=== PATIENT | female | born 1940 | race Caucasian/White ===

== ENCOUNTER 2019-09-25 18:45 | Inpatient (IN) | payer MEDICARE, OTHER, SELFPAY ==
[2019-09-25 18:23] VITALS: BP 137/76; PULSE 120; RESP 20; TEMP 37.1; O2SAT 91
--- NOTE | 2019-09-25 18:23 | XRR_ITS ---
PROCEDURE INFORMATION: Exam: XR Chest, 1 View Exam date and time: 09/25/2019 7:29 PM Age: 78 years old Clinical indication: Shortness of breath; Patient HX: Pneumonia TECHNIQUE: Imaging protocol: XR of the chest Views: 1 view. COMPARISON: No relevant prior studies available. FINDINGS: Lungs: Severe emphysema with scattered interstitial scarring. Mixed airspace and interstitial opacities in both lung bases, right greater than left. Pleural space: Unremarkable. No pleural effusion. No pneumothorax. Heart/Mediastinum: The heart size is normal. Mitral annulus calcifications. Bones/joints: Unremarkable. XR/XR chest 1V portable [id number] IMPRESSION: Bibasilar pneumonia versus aspiration.
--- NOTE | 2019-09-25 19:30 | PC.NURSE ---
Received patient from [facility] in [place], [place]. via [facility] with diagnosis of new onset of A-Fib with RVR and pneumonia. Assessment completed. Patient takes care of spouse who has lung cancer with mets. Dr. Sanderson in to see patient. Medication list received from patient. Oriented to room. Denies pain at this time. Just hungry and thirsty. [place] and water given to patient. Will monitor. Cardizem drip on at 15ml/hr via pump.
[2019-09-25 19:41] VITALS: BMI 25.2
--- NOTE | 2019-09-25 20:26 | PM.HP ---
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 She states that she was treated with a short course of azithromycin which she completed approximately a week ago and felt somewhat better but continues to have a productive cough with yellow-green sputum, low-grade temperature, fatigue and chills. She states that she has been keeping an eye on her blood pressure and heart rate and up until earlier this morning both of these were within normal limits. At some point this afternoon she rechecked her vital signs noticed that her heart rate was a very fast so decided to take some aspirin and then go to the ER for further evaluation. 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 She had extensive work-up done at the outside facility including a normal CBC, normal chemistry other than a BUN of 13 and a creatinine of 1.27, calcium of 8.0, BNP of 471, initial troponin of 21, normal TSH. Urinalysis is positive for trace protein and some blood. UDS was positive for benzodiazepines. She had a chest x-ray showing emphysema and bibasilar atelectasis versus consolidation concerning for developing infiltrate. EKG showed A. fib with RVR. She will received a Cardizem bolus and was started on a drip and received a dose of ceftriaxone. She is still on a Cardizem drip which we have increased to 15 mg/hr due to consistent A. fib with RVR. Heart rate has been as high as the 170s. Review of Systems Const: Reports: fever (low grade), chills, change in appetite (decreased appetite), fatigue and malaise Eyes: Denies: change in vision ENMT: Denies: painful swallowing Card: Reports: irregular heart rhythm and shortness of breath on exertion; Denies: chest pain, palpitations, edema, swelling of feet/ankles or lightheadedness Resp: Reports: productive cough (yellow-green sputum); Denies: shortness of breath GI: Reports: nausea; Denies: abdominal pain, vomiting, vomiting blood or blood in stool : Denies: difficulty urinating, painful urination, urinary frequency or blood in urine Musc: Denies: back pain Skin/Breast: Denies: rash Neuro: Denies: numbness in extremities or weakness in extremities Psych: Denies: anxiety Medications/Allergies Home Medications Medication Instructions Recorded Confirmed Last Taken Type amlodipine 10 mg PO DAILY 09/25/19 09/25/19 Unknown History calcitriol 0.5 mcg PO BID 09/25/19 09/25/19 Unknown History calcium carb and citrate-vitD3 500 mg PO BID 09/25/19 09/25/19 Unknown History ciprofloxacin HCl 500 mg PO BID 09/25/19 09/25/19 Unknown History diazepam See Rx Instructions .ROUTE .COMPLEX 09/25/19 09/25/19 Unknown History enalapril maleate 10 mg PO DAILY 09/25/19 09/25/19 Unknown History levothyroxine [Synthroid] 175 mcg PO DAILY 09/25/19 09/25/19 09/24/19 20:30 History 175 mcg Allergies Allergy/AdvReac Type Severity Reaction Status Date / Time Sulfa (Sulfonamide Allergy ADR-Nausea Verified 09/25/19 19:31 Antibiotics) PFSH Acute PFSH: Statuses (acute, chronic, etc) shown below reflect problem list status as previously entered and may not be historically accurate Medical History (Updated 09/26/19 @ 02:14 by Sera Sanderson MD) Anxiety (Acute) Breast cancer (Acute) Status post 5 years of adjuvant hormonal therapy with Arimidex Chronic kidney disease, stage III (moderate) (Acute) COPD (chronic obstructive pulmonary disease) (Acute) Hypertension (Acute) Hypoparathyroidism (Acute) Hypothyroidism (Acute) Osteoporosis (Acute) Tobacco dependency (Acute) Surgical History (Updated 09/26/19 @ 02:06 by Sera Sanderson MD) History of bilateral salpingo-oophorectomy (Acute) History of ear surgery (Acute) removal of cyst from L ear in 1998 History of hysterectomy (Acute) History of laparotomy (Acute) for bowel obstruction History of thyroidectomy (Acute) in 1989 S/P mastectomy (Acute) left, with sentinal lymph node biopsy Family History (Updated 09/26/19 @ 02:09 by Sera Sanderson MD) Father Cancer prostate cancer, lung cancer Grandmother Cancer breast cancer Mother CAD (coronary artery disease) Social History (Updated 09/26/19 @ 02:06 by Sera Sanderson MD) Smoking and tobacco status: current every day smoker cigarettes Packs smoked per day: 1 Alcohol intake: never Substance/Drug Use: never Lives independently: Yes Household members: spouse Housing: House Vitals/I&O/Wt Last Vital Signs Temp 98.7 F 09/25/19 18:23 Pulse 120 H 09/25/19 18:23 Resp 20 H 09/25/19 18:23 BP 137/76 09/25/19 18:23 Pulse Ox 91 09/25/19 18:23 Physical Exam Const: COMMON NORMALS: no apparent distress and oriented x3 GENERAL APPEARANCE: cooperative and comfortable NUTRITIONAL APPEARANCE: thin ORIENTATION/CONSCIOUSNESS: Yes awake HENMT: COMMON NORMALS: normocephalic, head/scalp atraumatic, hearing grossly normal bilaterally and moist oral mucous membranes HEAD & SCALP: normocephalic and atraumatic Eye: COMMON NORMALS: PERRL, EOMs intact bilaterally and conjunctivae normal CONJUNCTIVA: Yes conjunctivae normal PUPIL: Yes PERRL Neck/C-Spine: COMMON NORMALS: full ROM GENERAL: Yes normal visual inspection and Yes trachea midline Resp: COMMON NORMALS: normal respiratory effort, no retractions and no use of accessory muscles EFFORT & INSPECTION: Yes able to speak in complete sentences, Yes symmetric chest movement and No tachypneic AUSCULTATION: diminished lung sounds bilateral Cardio: COMMON NORMALS: S1 normal heart sound, S2 normal heart sound and no murmurs RATE: regular rate and tachycardic RHYTHM: abnormal rhythm irregularly irregular HEART SOUNDS: S1 normal and S2 normal GI: COMMON NORMALS: normal to inspection, nondistended, normoactive bowel sounds, soft to palpation and non-tender PALPATION: Yes soft Extremity: COMMON NORMALS: normal to inspection, full ROM and no clubbing, cyanosis or edema; negative for no pedal edema Neuro: COMMON NORMALS: oriented x3, moves all extremities, no focal motor deficits and no sensory deficits noted Psych: COMMON NORMALS: mental status grossly normal, thought process normal, cooperative, affect normal and speech normal SPEECH: Yes normal speech THOUGHT PROCESS: normal thought process Skin: COMMON NORMALS: no rashes or lesions noted, no jaundice, no petechiae and no mottling GENERAL SKIN EXAM: no rashes or lesions noted Data Other Labs: Reviewed labs done at [facility] CBC: 8.3/14.1/42.3/234 BMP: 136/4.0/96/26/13/1.27/117/8.0 Troponin-21 BNP-471 TSH-1.81 UA: trace protein/+blood UDS: + benzos CXR: Radiologist's impression: no pleural effusion, noted emphysema, bibasilar atelectasis versus consolidation concerning for developing infiltrates A&P Assessment and plan (1) Atrial fibrillation with RVR: -Appears to be new onset A. fib with RVR -Currently requiring Cardizem drip; wean off as tolerated -Telemetry monitoring -Echo in a.m. -Monitor vital signs -May require therapeutic anticoagulation but for now we will do prophylactic Lovenox -Potassium, TSH within normal limits Status: Acute Code(s): I48.91 - Unspecified atrial fibrillation (2) Pneumonia: -Noted evidence of bibasilar pneumonia on chest x-ray -No leukocytosis, afebrile -Received a dose of ceftriaxone at outside facility, continue this plus azithromycin -Currently requiring supplemental oxygen; she is not oxygen dependent at baseline -Continue to monitor respiratory status Status: Acute Qualifiers: Pneumonia type: due to unspecified organism Laterality: bilateral Lung location: lower lobe of lung Qualified Code(s): J18.9 - Pneumonia, unspecified organism Code(s): J18.9 - Pneumonia, unspecified organism (3) COPD (chronic obstructive pulmonary disease): -COPD with acute exacerbation and superimposed pneumonia -Treatment of pneumonia as noted above -Add oral steroids; Neb treatments as needed -supplemental oxygen as needed Status: Acute Qualifiers: COPD type: COPD with acute exacerbation Qualified Code(s): J44.1 - Chronic obstructive pulmonary disease with (acute) exacerbation Code(s): J44.9 - Chronic obstructive pulmonary disease, unspecified (4) Hypertension: -Monitor vital signs -Resume oral antihypertensives as appropriate Status: Acute Qualifiers: Hypertension type: essential hypertension Qualified Code(s): I10 - Essential (primary) hypertension Code(s): I10 - Essential (primary) hypertension (5) Chronic kidney disease, stage III (moderate): -has hx of CKD stage 3; baseline Cr unknown -continue to monitor renal function -avoid nephrotoxins, renally dose meds Status: Acute Code(s): N18.3 - Chronic kidney disease, stage 3 (moderate) Additional A&P Information -Anxiety -Chronic smoker: 1 PPD; order nicotine patch -hx of infiltrating ductal carcinoma of the left breast s/p left mastectomy, adjuvant hormonal therapy (Arimidex) -Hypoparathyroidism (acquired) -Hypothyroidism: resume levothyroxine -cardiac diet as tolerated -DVT ppx with Lovenox -Dispo: home -Code status: FULL code Attestations Medical Necessity Statement*: Gladis Ceballos's hospital stay will require greater than 2 midnights for management of new onset A. fib with RVR currently requiring Cardizem drip and close telemetry monitoring as well as treatment of pneumonia and acute COPD exacerbation. Time Spent in Patient Care: Greater than 35 minutes (>than 50% of time spent in counselling and/or direct pt care on unit). Coding Level of Care Code Acute Rn Registry for [facility] Fwd Diagnoses Atrial fibrillation with RVR I48.91 Pneumonia J18.9 Pneumonia type: due to unspecified organism Laterality: bilateral Lung location: lower lobe of lung COPD (chronic obstructive pulmonary disease) J44.1 COPD type: COPD with acute exacerbation Hypertension I10 Hypertension type: essential hypertension Chronic kidney disease, stage III (moderate) N18.3
--- NOTE | 2019-09-25 20:27 | ECG_ITS ---
Measurements Intervals [place] Rate: 92 P: ID: 0 QRS: 1 QRSD: 134 T: 74 QT: 425 QTc: 526 ATRIAL FIBRILLATION LEFT BUNDLE BRANCH BLOCK [120+ ms QRS DURATION, 80+ ms Q/S IN V1/V2, 85+ ms R IN I/aVL/V5/V6] No previous ECG available for comparison Electronically Signed On 09-26-2019 9:34:14 TENANT SELECTOR by Tony Erickson M.D. [id number]
[2019-09-25] MEDS: diazePAM 5 mg Tablet PO (21:14)
[2019-09-25] MEDS: levothyroxine 150 mcg Tablet PO (21:14)
[2019-09-25] MEDS: levothyroxine 25 mcg Tablet PO (21:14)
[2019-09-25] MEDS: azithromycin 500 MG in sodium chloride 0.9% 250 ML 250 MG IV (21:15)
[2019-09-25] MEDS: enoxaparin 40 mg/0.4 mL Syringe SUBCUT (21:16)
[2019-09-25 21:37] LABS: Troponin(5th) Baseline 25 ng/mL (0-10)
[2019-09-25 22:01] LABS: Magnesium 2.3 mg/dL (1.7-2.3)
[2019-09-25] MEDS: sodium chloride 0.9% 100 ML 10 ML (22:25)
[2019-09-25 23:21] LABS: Troponin 5 2HR 30.19 ng/mL (0-10); Troponin 5 2HR Delta 5.19 ABS# (0-10)
[2019-09-26] VITALS (8 sets, daily range): BP systolic 90–121; BP diastolic 52–71; PULSE 59–105; RESP 17–32; TEMP 36.6–36.8; O2SAT 90–96
--- NOTE | 2019-09-26 00:27 | ECG_ITS ---
Measurements Intervals [place] Rate: 75 P: CO: 0 QRS: -35 QRSD: 142 T: 72 QT: 484 QTc: 544 ATRIAL FIBRILLATION MARKED LEFT AXIS DEVIATION [QRS AXIS < -30] LEFT BUNDLE BRANCH BLOCK [120+ ms QRS DURATION, 80+ ms Q/S IN V1/V2, 85+ ms R IN I/aVL/V5/V6] No previous ECG available for comparison Electronically Signed On 09-26-2019 9:34:41 PAPER BAG INSPECTOR by Tony Erickson M.D. [id number]
--- NOTE | 2019-09-26 02:41 | PC.NURSE ---
Cardizem drip decreased to 7ml/hr. Heart rate upper 60's to low 70's. Continues in A-Fib. Resting on right side with respirations even and unlabored. Will monitor.
[2019-09-26 03:02] LABS: Basophils % 0.5 %; Eosinophils # 0.1 10^3/uL (0.0-0.8); Eosinophils % 0.7 %; Hematocrit 37.5 % (37.0-47.0); Hemoglobin 12.6 g/dL (11.5-15.3); Lymphocytes # 1.9 10^3/uL (0.8-4.8); Lymphocytes % 23.6 %; Mean Corpuscular HGB Conc 33.6 g/dL (30.0-36.0); Mean Corpuscular Hemoglobin 32.7 pg (28.0-34.0); Mean Corpuscular Volume 97.4 fL (81-99); Mean Platelet Volume 10.9 fL (7.4-10.4); Monocytes # 0.6 10^3/uL (0.2-0.9); Monocytes % 6.9 %; Neutrophils # 5.6 10^3/uL (1.8-7.7); Neutrophils % 68.2 %; Nucleated Red Blood Cells % 0 %; Platelet Count 260 10^3/cmm (130-400); Red Blood Count 3.85 10^6/uL (4.1-5.3); Red Cell Distribution Width 12.9 % (12.1-15.1); White Blood Count 8.2 10^3/uL (4.0-10.0)
[2019-09-26 03:14] LABS: Alanine Aminotransferase 20 U/L (0-33); Albumin Level 3.1 g/dL (3.5-5.2); Alkaline Phosphatase 65 IU/L (35-105); Aspartate Amino Transferase 24 U/L (0-32); Blood Urea Nitrogen 17 mg/dL (8-23); Carbon Dioxide 25 mmol/L (22-29); Chloride 100 mmol/L (98-107); Globulin 3.1 g/dL (1.3-4.6); Glucose 109 mg/dL (74-106); Sodium 138 mmol/L (136-145); Total Bilirubin 0.3 mg/dL (0.15-1.2); Total Protein 6.2 g/dL (6.6-8.7)
[2019-09-26 03:16] LABS: Troponin 5 6HR 28.23 ng/L (0-10); Troponin 5 6HR Delta 3.23 ng/L (0-12)
--- NOTE | 2019-09-26 06:43 | PC.NURSE ---
Increased oxygen from 2L to 3L/NC secondary to oxygen saturation continuing to stay 88-89%. Oxygen saturation now running 91-92%. Denies complaints. Heart rate 87. Monitor still showing A-Fib. Cardizem drip continues at 7ml/hr. Will monitor.
[2019-09-26] MEDS: cefTRIAXone 1,000 MG in sodium chloride 0.9% (plus) 50 ML 100 MG IV (09:14)
[2019-09-26] MEDS: nicotine 14 mg Patch 1 PATCH TRANSDERMA (09:42)
[2019-09-26] MEDS: amlodipine 5 mg Tablet PO (09:43)
[2019-09-26] MEDS: aspirin 81 mg EC Tablet PO (09:43)
[2019-09-26] MEDS: calcium carb-vit d 500mg-200unit 1 Tablet 1 EACH PO ×2 (09:43→18:04)
[2019-09-26] MEDS: predniSONE 20 mg Tablet 40 MG PO (09:43)
[2019-09-26] MEDS: calcitriol 0.25 mcg Capsule 0.5 MCG PO (09:43)
[2019-09-26] MEDS: metoprolol tartrate 25 mg Tablet PO ×2 (09:43→18:05)
[2019-09-26] MEDS: diazePAM 5 mg Tablet PO ×2 (12:26→23:19)
--- NOTE | 2019-09-26 12:34 | PC.CHAP ---
Pastoral Care Encounter/Spiritual Assessment Type of Contact [] Declined structural layout worker visit [] Patient/Family/Request visit [] Outpatient visit [] Follow-up visit [] Physician referral [] Code/Alert [] Routine visit [] Staff referral [] Actively dying [] Patient sleeping [] Family support [] [] Out of room [] Palliative care [] [] Receiving care in room [] Pre-surgical visit [] Trauma [] Long length of stay [] ICU visit [] Other: Relational/Emotional Strength [x] Patient feels connected with others/family/visitors/staff [] Distress [] Loneliness/isolation [] Abandonment Spirituality of Patient [] Person of Jody [] Attends Muslim of their Jody [] Believes in Prayer [] Reads Bible or Sikhism materials [] There are Spiritual issues to be addressed Supervisor Contact And Service Clerks Interventions [x] Prayer [x] Active listening [x] Non-anxious presence [x] Spiritual/emotional support [] Crisis/trauma care [] Spiritual counseling [] Bereavement support [] Provided bereavement packet [] Provided Bible/devotional materials [] Provided toy/stuffed animal, coloring book to patient or family member [x] Completed spiritual assessment [] Provided Communion [] Anointing/Bena [] Salvation [] Other: Impact on Illness or Injury [] Angry [] Fearful [] Anxious [] Often cries [] Exhaustion [] Unable to work [] Unable to attend tenriism [] Unable to walk/stand [] Unable to read [] Unable to drive [] Unable to eat/drink [] Unable to sleep [] Unable to be with family [] Other: Summary Chaplains prayed with patient. Time spent with patient 15 minutes
--- NOTE | 2019-09-26 13:20 | PM.PN ---
Subjective Subjective: Interval history: Gladis reports she is feeling better than on admission. Still coughing some. No chest pain. History and physical reviewed. Medications: Reviewed: Yes Vitals/I&O/Wt Last Vital Signs Temp 98 F 09/26/19 04:00 Pulse 105 H 09/26/19 07:52 Resp 25 H 09/26/19 07:52 BP 117/66 09/26/19 07:52 Pulse Ox 91 09/26/19 07:52 09/25/19 09/26/19 09/26/19 22:59 06:59 14:59 Intake Total 28.833 / 28.833 920.550 / 949.383 120 / 120 Balance 28.833 / 28.833 920.550 / 949.383 120 / 120 Weight last 48 hrs Weight 62.868 kg Weight 62.596 kg Physical Exam Narrative: EXAM NARRATIVE: General exam no apparent distress Cardiovascular irregular, irregular Lungs clear but with diminished breath sounds bilaterally. No wheezing. Few coarse rhonchi heard on the right Abdomen is soft with positive bowel sounds Extremities no cyanosis clubbing or edema. Data : 09/26/19 02:50 09/26/19 02:50 Micro: Microbiology 09/25/19 20:41 Blood Culture - Preliminary Blood SPECIMEN COLLECTED 09/25/19 20:34 Blood Culture - Preliminary Blood SPECIMEN COLLECTED A&P Assessment and plan (1) Atrial fibrillation with RVR: New onset. Currently on Cardizem drip. Will transition to metoprolol. Await echocardiogram Discussed anticoagulation. Will initiate Eliquis. Risks and benefits discussed Thyroid testing was normal Status: Acute Code(s): I48.91 - Unspecified atrial fibrillation (2) Pneumonia: Right lower lobe pneumonia. Currently on Zithromax and Rocephin. Status: Acute Qualifiers: Pneumonia type: due to unspecified organism Laterality: bilateral Lung location: lower lobe of lung Qualified Code(s): J18.9 - Pneumonia, unspecified organism Code(s): J18.9 - Pneumonia, unspecified organism (3) COPD (chronic obstructive pulmonary disease): COPD exacerbation, acute. Nebs, oral prednisone Status: Acute Qualifiers: COPD type: COPD with acute exacerbation Qualified Code(s): J44.1 - Chronic obstructive pulmonary disease with (acute) exacerbation Code(s): J44.9 - Chronic obstructive pulmonary disease, unspecified (4) Hypertension: Initiating metoprolol currently. Hold off on other home medication currently. Status: Acute Qualifiers: Hypertension type: essential hypertension Qualified Code(s): I10 - Essential (primary) hypertension Code(s): I10 - Essential (primary) hypertension (5) Chronic kidney disease, stage III (moderate): -has hx of CKD stage 3; baseline Cr unknown -continue to monitor renal function -avoid nephrotoxins, renally dose meds Status: Acute Code(s): N18.3 - Chronic kidney disease, stage 3 (moderate) Additional A&P Information Nicotine dependency Hypothyroidism Hypoparathyroidism Anxiety Attestations Medical Necessity Statement*: Needs continued hospital stay for medication changes for rate control of atrial fibrillation with rapid ventricular rate. Coding Level of Care Code Acute Archaeology Professor for [facility] Fwd Diagnoses Atrial fibrillation with RVR I48.91 Pneumonia J18.9 Pneumonia type: due to unspecified organism Laterality: bilateral Lung location: lower lobe of lung COPD (chronic obstructive pulmonary disease) J44.1 COPD type: COPD with acute exacerbation Hypertension I10 Hypertension type: essential hypertension Chronic kidney disease, stage III (moderate) N18.3
--- NOTE | 2019-09-26 15:21 | ECG_ITS ---
Measurements Intervals [place] Rate: 59 P: 64 MT: 162 QRS: -35 QRSD: 138 T: 69 QT: 525 QTc: 524 SINUS BRADYCARDIA MARKED LEFT AXIS DEVIATION [QRS AXIS < -30] LEFT BUNDLE BRANCH BLOCK [120+ ms QRS DURATION, 80+ ms Q/S IN V1/V2, 85+ ms R IN I/aVL/V5/V6] Compared to ECG 09/26/2019 01:20:56 Atrial fibrillation no longer present Electronically Signed On 09-27-2019 17:26:19 HIMS MANAGER by Tony Erickson M.D. [id number]
[2019-09-26] MEDS: apixaban 5 mg Tablet PO (18:05)
--- NOTE | 2019-09-26 18:32 | USCV_ITS ---
Tucker Gladis Age: 78 Gender: F : 1940 Exam Date: 09/26/2019 09:02 Ordering Phys: Urban Pabon MD Technologist: Lalita Holm Exam Location: [facility] [place] Indication: AFib BP: 117 / 66 HR: 68 Rhythm: Sinus Technical Quality: Technically difficult study MEASUREMENTS (Male / Female) Normal Values 2D ECHO LV Diastolic Diameter PLAX 3.3 cm 4.2 - 5.9 / 3.9 - 5.3 cm LV Systolic Diameter PLAX 2.1 cm LV Chamber Size 3.6 cm IVS Diastolic Thickness 1.8 cm 0.6 - 1.0 / 0.6 - 0.9 cm IVS Systolic Thickness 2.2 cm LVPW Diastolic Thickness 1.1 cm 0.6 - 1.0 / 0.6 - 0.9 cm LVPW Systolic Thickness 1.3 cm RV Chamber Size 2.4 cm LVOT Diameter 1.8 cm LV Ejection Fraction 2D Teich 68.5 % LV Ejection Fraction MOD 2C 65.5 % LV Ejection Fraction 2C AL 72.2 % LA Diameter 2.8 cm LA Width 3.1 cm LA Height 5.5 cm RA Width 2.8 cm RA Height 4.9 cm Aorta at Sinotubular Diameter 2.8 cm DOPPLER AV Peak Velocity 167.0 cm/s LVOT Peak Velocity 117.0 cm/s AV Area Cont Eq vti 1.9 cm squared AV Area Cont Eq pk 1.8 cm squared MV Area PHT 3.3 cm squared Mitral E to A Ratio 0.8 MV E' Velocity 6.0 cm/s Mitral E to MV E' Ratio 17.0 Mitral E to LV E' Lateral Ratio 16.4 Mitral E to LV E' Septal Ratio 17.6 TR Peak Velocity 438.0 cm/s TR Peak Gradient 76.6 mmHg TR Mean Velocity 228.1 cm/s TR Mean Gradient 21.2 mmHg TR Velocity Time Integral 91.2 cm TV Peak E Velocity 42.0 cm/s Right Atrial Pressure 3.0 mmHg Pulmonary Artery Systolic Pressu 79.7 mmHg FINDINGS Left Ventricle Normal left ventricular cavity size. Moderate left ventricular hypertrophy. Normal left ventricular systolic function. No regional wall motion abnormalities. Grade I/IV diastolic dysfunction (abnormal relaxation filling pattern), normal to mildly elevated filling pressures. Left ventricular ejection fraction is estimated at 65 %. Right Ventricle Normal right ventricular size and systolic function. The pulmonary artery systolic pressure was calculated to be almost 80 mmHg. This number may be spuriously elevated due to the inadequate tricuspid regurgitation envelope. Right Atrium The right atrium is normal in size. Left Atrium Mildly increased left atrial size. Mitral Valve Structurally normal mitral valve. Moderate mitral annular calcification. Mild-moderate mitral valve regurgitation. Aortic Valve Structurally normal aortic valve without significant sclerosis or stenosis. There is no aortic regurgitation. Tricuspid Valve Structurally normal tricuspid valve. Mild tricuspid valve regurgitation. Pulmonic Valve Pulmonic valve not well visualized. Pericardium Normal pericardium without effusion. Aorta Normal ascending aorta dimension. CONCLUSIONS Normal left ventricular cavity size. Moderate left ventricular hypertrophy. Normal left ventricular systolic function. No regional wall motion abnormalities. Grade I/IV diastolic dysfunction (abnormal relaxation filling pattern), normal to mildly elevated filling pressures. Left ventricular ejection fraction is estimated at 65 %. Normal right ventricular size and systolic function. The pulmonary artery systolic pressure was calculated to be almost 80 mmHg. This number may be spuriously elevated due to the inadequate tricuspid regurgitation envelope. Mildly increased left atrial size. Structurally normal mitral valve. Moderate mitral annular calcification. Mild-moderate mitral valve regurgitation. Dr. Tony Erickson MD (Electronically Signed) Final Date: 26 September 2019 10:22 S
[2019-09-26] MEDS: cefTRIAXone 1,000 MG in sodium chloride 0.9% (plus) 50 ML 50 MG IV (19:38)
[2019-09-26] MEDS: levothyroxine 150 mcg Tablet PO (19:50)
[2019-09-26] MEDS: levothyroxine 25 mcg Tablet PO (19:50)
[2019-09-27 04:00] VITALS: BP 110/61; PULSE 60; RESP 16; TEMP 36.7; O2SAT 93
[2019-09-27 06:02] LABS: Basophils % 0.1 %; Eosinophils % 0.1 %; Hematocrit 40.1 % (37.0-47.0); Hemoglobin 13.1 g/dL (11.5-15.3); Lymphocytes # 1.9 10^3/uL (0.8-4.8); Lymphocytes % 20.9 %; Mean Corpuscular HGB Conc 32.7 g/dL (30.0-36.0); Mean Platelet Volume 11.3 fL (7.4-10.4); Monocytes # 0.6 10^3/uL (0.2-0.9); Monocytes % 6.7 %; Neutrophils # 6.6 10^3/uL (1.8-7.7); Neutrophils % 71.9 %; Nucleated Red Blood Cells % 0 %; Platelet Count 262 10^3/cmm (130-400); Red Blood Count 3.97 10^6/uL (4.1-5.3); Red Cell Distribution Width 12.6 % (12.1-15.1); White Blood Count 9.2 10^3/uL (4.0-10.0)
[2019-09-27 06:27] LABS: Blood Urea Nitrogen 26 mg/dL (8-23); Calcium 8.7 mg/Dl (8.8-10.2); Carbon Dioxide 25 mmol/L (22-29); Chloride 100 mmol/L (98-107); Glucose 94 mg/dL (74-106); Sodium 138 mmol/L (136-145)
[2019-09-27 07:15] VITALS: BP 121/74; PULSE 65; RESP 18; TEMP 36.6; O2SAT 94
[2019-09-27 09:06] VITALS: PULSE 71; RESP 18; O2SAT 92
--- NOTE | 2019-09-27 09:38 | CT_ITS ---
WS: [id number] CT CHEST TECHNIQUE: Contrast enhanced CT of the chest with coronal and sagittal reformatted images. CLINICAL INFORMATION: severe PHTN, evaluate lungs COMPARISON: None. DLP: 366.[address] scans at [facility] use at least one of these dose optimization techniques: automat ed exposure control; mA and/or kV adjustment per patient size (includes targeted exams where dose is matched to clinical indication); or iterative reconstruction. FINDINGS: Advanced chronic emphysematous changes. Small bilateral pleural effusions with bibasilar atelectasis more prominent in the left lower lobe no focal consolidation. Upper lobes are well aerated. Small 5 m m noncalcified nodule right upper lobe anteriorly. Cardiomegaly. Vascular calcification including coronary. Tortuous thoracic aorta. Proximal main pulmo nary arteries appear normal. No mediastinal or hilar lymphadenopathy. Adrenal glands are normal. Prio r left mastectomy. Slightly patchy sclerotic appearance to the thoracic spine. No focal lytic or blastic lesions. Recomm end correlation with infiltrative marrow processes or less likely metastatic disease. Bones could be further evaluated with bone scan.. CT/CT chest w con* [id number] IMPRESSION: 1. Advanced chronic emphysematous changes. 2. Small bilateral pleural effusions with slight patchy infiltrate/atelectasis in the left greater than right lung base. Recommend correlation for pneumonia. 3. Cardiomegaly with coronary calcification. 4. No mediastinal or hilar lymphadenopathy. 5. Slight patchy heterogeneous appearance to the thoracic spine is nonspecific . Recommend correlation for infiltrative marrow disorders and less likely metas tatic disease. No focal lesions. The bony structures could be further evaluated with bone scan.
[2019-09-27] MEDS: iodixanol 320 mg/mL 100mL Btl IV (10:01)
[2019-09-27 11:00] VITALS: BP 110/57; PULSE 66; RESP 20; TEMP 37.1; O2SAT 95
[2019-09-27] MEDS: metoprolol tartrate 25 mg Tablet PO (11:00)
[2019-09-27] MEDS: cefTRIAXone 1,000 MG in sodium chloride 0.9% (plus) 50 ML 50 MG IV (11:00)
[2019-09-27] MEDS: calcium carb-vit d 500mg-200unit 1 Tablet 1 EACH PO (11:01)
[2019-09-27] MEDS: predniSONE 20 mg Tablet 40 MG PO (11:01)
[2019-09-27] MEDS: apixaban 5 mg Tablet PO (11:01)
[2019-09-27] MEDS: aspirin 81 mg EC Tablet PO (11:02)
[2019-09-27] MEDS: calcitriol 0.25 mcg Capsule 0.5 MCG PO (11:02)
[2019-09-27] MEDS: diazePAM 5 mg Tablet PO (13:42)
[2019-09-27 14:41] VITALS: O2SAT 86; O2SAT 92
[2019-09-27 16:54] VITALS: BP 110/57; PULSE 66; RESP 20; TEMP 37.1; O2SAT 95
--- NOTE | 2019-09-27 17:13 | PM.DCS ---
Discharge Providers Date of Admission: 09/25/19 18:45 Date of Discharge: 09/27/19 Attending Provider at Admission: Urban Pabon MD Attending Provider at Discharge: Zbigniew Camarillo MD Diagnoses at Discharge Discharge Diagnosis (1) Atrial fibrillation with RVR: Status: Acute (2) Pneumonia: Status: Acute Qualifiers: Pneumonia type: due to unspecified organism Laterality: bilateral Lung location: lower lobe of lung Qualified Code(s): J18.9 - Pneumonia, unspecified organism (3) COPD (chronic obstructive pulmonary disease): Status: Acute Qualifiers: COPD type: COPD with acute exacerbation Qualified Code(s): J44.1 - Chronic obstructive pulmonary disease with (acute) exacerbation (4) Hypertension: Status: Acute Qualifiers: Hypertension type: essential hypertension Qualified Code(s): I10 - Essential (primary) hypertension (5) Chronic kidney disease, stage III (moderate): Status: Acute Problem details: Repeat BMP tomorrow Reason for Visit Reason for Visit: Reason For Visit: a fib with rvr;poss pneumonia Hospital Course Hospital Course: This is a 79-year-old female with a past medical history of hypertension, greater than [id number] history of smoking, anxiety, left breast infiltrating ductal carcinoma status post adjuvant hormonal therapy, osteoporosis, CKD stage III who presents as a transfer from [facility] due to concerns for pneumonia and A. fib with RVR. Patient was admitted for acute respiratory failure secondary to bibasilar pneumonia and COPD exacerbation. She received broad-spectrum antibiotics, oxygen therapy, nebulizer treatments, steroids, clinically improved. She was discharged on a steroid burst, PRN albuterol, Advair, Levaquin, and oxygen 3 L throughout the day. In speaking with the patient, and with her [id number] history of smoking, likely patient has baseline COPD given her CT chest findings of advanced chronic emphysematous changes. Patient was advised to follow-up with her primary care provider in 1 to 2 weeks. patient was advised that if her symptoms were to worsen or to persist come back to the emergency room. Were to persist come back to the emergency room. Patient was advised to quit smoking. In addition on admission patient was found to have A. fib with RVR likely secondary to her acute respiratory failure, she converted into normal sinus rhythm after being placed on a Cardizem drip, was transitioned to oral metoprolol, and Eliquis. She was discharged on metoprolol 25 twice daily, with Eliquis, and a close follow-up with her primary care provider in 1 to 2 weeks, and to follow-up with cardiology as outpatient. Incidental findings on admission, patient's echocardiogram showed severe pulmonary hypertension, likely secondary to underlying severe COPD, patient was advised to follow-up with pulmonary as outpatient. In addition patient CT of her chest showed a slight patchy heterogeneous appearance to the thoracic spine which was nonspecific, with possible concerns of infiltrative marrow disorder, less likely metastatic disease. Patient was asymptomatic. Patient was advised to follow-up with her primary care provider in regards to further work-up if required. Discharge Summary: Things to follow-up on: -Follow-up with cardiology for A. fib -Follow-up with pulmonary for COPD and pulmonary hypertension -Follow-up with primary care for incidental findings -Patient was discharged on 3 L oxygen, will require of slow wean over time,, but it is possible that she might require oxygen as outpatient chronically given her severe underlying COPD Physical Exam Const: COMMON NORMALS: no apparent distress and oriented x3 HENMT: COMMON NORMALS: normocephalic HEAD & SCALP: normocephalic Neck/C-Spine: COMMON NORMALS: no lymphadenopathy and no JVD Resp: COMMON NORMALS: normal respiratory effort, no retractions, no use of accessory muscles and clear to auscultation bilaterally AUSCULTATION: clear to auscultation bilaterally Cardio: COMMON NORMALS: no JVD, regular rate, S1 normal heart sound and S2 normal heart sound RATE: regular rate HEART SOUNDS: S1 normal and S2 normal GI: COMMON NORMALS: normal to inspection, nondistended, normoactive bowel sounds, soft to palpation, non-tender and no hepatosplenomegaly PALPATION: Yes soft and Yes no hepatosplenomegaly : COMMON NORMALS: Yes no CVA tenderness BLADDER/KIDNEY EXAM: Yes no CVA tenderness Back/Pelvis: COMMON NORMALS: no CVA tenderness Extremity: COMMON NORMALS: no clubbing, cyanosis or edema and no pedal edema Neuro: COMMON NORMALS: oriented x3 Discharge Data Data Completed and Pending: Completed Studies During Hospitalization Category Date Time Status CT chest w con* [id number] Stat Cat Scan 09/27/19 09:38 Completed XR chest 1V ponce ble [id number] Routine Exams 09/25/19 18:23 Completed CV echo complete* [id number] Routine Ultrasound 09/26/19 18:32 Completed Pending at discharge Category Date Time Status Blood Culture Sta t Lab 09/25/19 20:41 Results Labs from last 24 hours 09/27/19 09/27/19 05:23 05:23 WBC 9.2 RBC 3.97 L Hgb 13.1 Hct 40.1 MCV 101.0 H MCH 33.0 MCHC 32.7 RDW 12.6 Plt Count 262 MPV 11.3 H Neut % (Auto) 71.9 Lymph % (Auto) 20.9 Green % (Auto) 6.7 Eos % (Auto) 0.1 Baso % (Auto) 0.1 Neut # (Auto) 6.6 Lymph # (Auto) 1.9 Green # (Auto) 0.6 Eos # (Auto) 0.0 Baso # (Auto) 0.0 Nucleated RBC % (a uto) 0 Nucleated RBCs # 0.0 Sodium 138 Potassium 4.0 Chloride 100 Carbon Dioxide 25 Anion Gap 17.0 BUN 26 H Creatinine 1.3 H Glucose 94 Calcium 8.7 L Vitals: Last Vital Signs Temp 98.8 F 09/27/19 16:54 Pulse 66 09/27/19 16:54 Resp 20 H 09/27/19 16:54 BP 110/57 09/27/19 16:54 Pulse Ox 95 09/27/19 16:54 Discharge Plan Discharge Patient Disposition: Home, Self-Care Condition: Stable Prescriptions: New prednisone 20 mg Tablet 40 mg PO DAILY 5 Days Qty: 5 RF: 0 metoprolol tartrate 25 mg Tablet 25 mg PO BID 30 Days Qty: 60 RF: 0 Eliquis 5 mg Tablet 5 mg PO BID 30 Days Qty: 60 RF: 0 Levaquin 750 mg tablet 750 mg PO DAILY 7 Days Qty: 7 RF: 0 albuterol sulfate 90 mcg/actuation HFA aerosol inhaler 1 inh INHALATION Q6H PRN (Reason: shortness of breath or wheezing) Qty: 18 RF: 0 Advair Diskus 100-50 mcg/dose blister with device 1 inh INHALATION DAILY Qty: 60 RF: 0 Continued Synthroid 175 mcg tablet 175 mcg PO DAILY RF: 0 diazepam 5 mg tablet See Rx Instructions .ROUTE .COMPLEX RF: 0 calcitriol 0.5 mcg capsule 0.5 mcg PO BID RF: 0 calcium carb and citrate-vitD3 500 mg PO BID RF: 0 Discontinued enalapril maleate 10 mg tablet 10 mg PO DAILY RF: 0 amlodipine 10 mg tablet 10 mg PO DAILY RF: 0 ciprofloxacin HCl 500 mg tablet 500 mg PO BID RF: 0 Discharge Orders: Discharge Order (Routine); Ordered 09/27/19 Ordered By: Zbigniew Camarillo Other Ambulatory Orders: DME: Oxygen (Order) Location: None Selected Ordered By: Zbigniew Camarillo Referrals: Tony Erickson MD [Physician] - 7-10 days (You have a cardiology followup with ALEJO Membreno at [facility] on October 04 at 10:30am. Any appointment changes or questions, please call them at [phone]) Zbigniew Camarillo MD [Hospitalist] - (You have a hospital followup with Bradley Foster APN at [facility] on October 01 at 8:45am. Any appointment changes or questions, please call them at [phone]) Sergio Bonilla MD [Physician] - 1 month (You have a pulmonology appointment with Dr. Bonilla at [facility] on October 27 at 10:00am. Any questions or appointment changes, please call them at [phone]) Discharge Diet: Advance as tolerated Discharge Activity: Resume usual activity Patient Instructions: Metoprolol (By mouth), Albuterol (By breathing), Prednisone (By mouth), Fluticasone (By breathing), Levofloxacin (By mouth), Apixaban (By mouth), Hypertension, Atrial Fibrillation (DC), Chronic Obstructive Pulmonary Disease (DC), COPD Stoplight, Pneumonia Stoplight Activity Restrictions/Additional Instructions: -please take antibiotic as prescribed -please take steroid as prescribed -please use oxygen as prescribed -please take eliquis as prescribed, if you have bloody or black stools comeback to emergency room -if you have worsening shortness of breath please comeback o emergency room -You have COPD, please use advair, and albuterol as prescribed, please stop smoking -you have severe pulmonary HTN, please follow p with pulmonary as outpatient -follow up with primary care in 1-2 weeks -you have been put on metoprolol 25mg BID for atrial fibrillation, you have converted to normal sinus rhythm, if you feel light headed or dizzy please call primary care -youre amlodipine and enalapril have been held as you are normotensive on metoprolol, please check blood pressure once zion, follow up with primary care for reinstitution Discharge Date/Time: 09/27/19 17:00 Discharge Attestations Time Spent in Discharge Care*: greater than 30 min Quality Metrics Clinical Quality Measures During this hospital stay, did patient experience: None Coding Level of Care Code Acute Chain Maker Loom Control for Kacy Fwd Diagnoses Atrial fibrillation with RVR I48.91 Pneumonia J18.9 Pneumonia type: due to unspecified organism Laterality: bilateral Lung location: lower lobe of lung COPD (chronic obstructive pulmonary disease) J44.1 COPD type: COPD with acute exacerbation Hypertension I10 Hypertension type: essential hypertension Chronic kidney disease, stage III (moderate) N18.3
== END 2019-09-27 17:00 | disposition home or self-care (01) | DRG 193 ==
PROVIDERS: Admitting Provider Internal Medicine; Family Provider Nurse Practitioner Family; Visit Provider Family Medicine
DX: J18.9 Pneumonia, unspecified organism (principal); J96.00 Acute respiratory failure, unspecified whether with hypoxia or hypercapnia; I48.91 Unspecified atrial fibrillation; F17.210 Nicotine dependence, cigarettes, uncomplicated; F41.9 Anxiety disorder, unspecified; J43.9 Emphysema, unspecified; M81.0 Age-related osteoporosis without current pathological fracture; I12.9 Hypertensive chronic kidney disease with stage 1 through stage 4 chronic kidney disease, or unspecified chronic kidney disease; Z71.6 Tobacco abuse counseling; E89.0 Postprocedural hypothyroidism; N18.3 Chronic kidney disease, stage 3 (moderate); I27.20 Pulmonary hypertension, unspecified; E20.9 Hypoparathyroidism, unspecified; Z85.3 Personal history of malignant neoplasm of breast; Z79.01 Long term (current) use of anticoagulants; Z90.710 Acquired absence of both cervix and uterus; Z90.12 Acquired absence of left breast and nipple
CPT/HCPCS: 12345; 36415; 71045; 71260; 80048; 80053; 83735; 84443; 84484; 85025; 87040; 93005; 93306; 96372; J0456; J0696; J1650; J3490; J7050; J7512; Q9967

== ENCOUNTER 2020-03-24 09:55 | Outpatient (CLI) | payer MEDICARE, OTHER, SELFPAY ==
--- NOTE | 2020-03-24 10:09 | MM_ITS ---
WS: [id number] Right breast diagnostic digital mammogram, 03/24/2020 Clinical Data: HX OF BREAST CA Comparison: 03/22/2019, 03/20/2018, 03/20/2017, 03/25/2016, 03/24/2015, 03/23/2014, 03/24/2013, 03/06/2012, , 03/02/2010, 02/27/2009. Findings: Extreme density of the right breast is seen. There are no spiculated masses nor clustered calcificati ons. There are no secondary signs of carcinoma. MM/[place] [id number] Impression: 1. Negative right breast mammogram unchanged. 2. Recommend annual right breast mammogram. BIRADS: 1-Negative FOLLOW UP: 1 Year Follow-up The CAD checkering machine adjuster was used.
== END 2020-03-24 09:56 | disposition home or self-care (01) ==
LOC: RADSHAW 10:05
PROVIDERS: PCP Registered Nurse; Visit Provider Internal Medicine Medical Oncology
DX: Z85.3 Personal history of malignant neoplasm of breast (principal)
CPT/HCPCS: 77065

== ENCOUNTER 2020-03-28 12:55 | Outpatient (CLI) | payer MEDICARE, OTHER, SELFPAY ==
--- NOTE | 2020-03-29 07:20 | ONC FU_ITS ---
Dr. Stahl Patient Follow-Up Note Patient: Gladis Ceballos Unit #: [id number]: 1940 Dicatated By: Juancarlos Stahl M.D.Date of Visit:Mar 28, 2020 Onc Med Follow-up/Prog Note Chief Complaint: Breast cancer. 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 She had presented in 2007 with a lump in her left breast. The diagnosis was established by needle biopsy, which showed grade 2 mucinous adenocarcinoma. She opted not to have breast conservation. She underwent total mastectomy with left sentinel axillary lymph node biopsy on 03/09/2008. Pathology showed grade 2 invasive ductal carcinoma, mucinous type. The tumor measured 1.2 cm in maximum diameter. It was ER positive at 77% and NJ negative at 0%. HER-2/micheal was also negative. There was no involvement in 2 sentinel x-ray lymph nodes. The Oncotype DX assay showed a recurrence score of 20, which was in the low intermediate risk category. She opted not to take adjuvant chemotherapy. She was given adjuvant hormonal therapy with Arimidex, which she stopped in April 2014 after completing 5 years of treatment. Her medical history is significant for thyroidectomy in 1989 with subsequent development of hypoparathyroidism. Her other medical illnesses include hypertension and chronic anxiety. Other surgeries have included hysterectomy/BSO in 1987, laparotomy for bowel obstruction in 1995, and removal of a cyst from the left ear in 1998. She has smoked for more than 45 years, previously in the range of a pack of cigarettes daily, but she did cut down to around a half a pack per day. She does not drink alcohol. During followup, she was found to have evidence of osteoporosis and she also was found to have stage III chronic kidney disease. She was mildly hypercalcemic, but that apparently was just due to excessive calcium replacement following previous parathyroid surgery. Thus far there has been no evidence of recurrence of the breast cancer. She is seen for a scheduled visit. She has been feeling good generally. She has good energy and activity tolerance. ECOG score is 0. Appetite also is good. She has no fever or night sweats. Her breathing has been okay lately. She does not complain of cough. She has not had chest pain or palpitations. She has no GI or complaints. She has had some pain in her right hand, but no other joint or bone pain. She has no focal neurologic symptoms. Medications: Calcitriol 1 (0.5 mcg) Capsule Oral daily, Diazepam 1 (5 mg) Tablet Oral b.i.d., Enalapril Maleate 1 (10 mg) Tablet Oral b.i.d., Norvasc 1 (5 mg) Tablet Oral daily, Synthroid 1 (175 mcg) Tablet Oral daily Allergies: No Known Allergies. Review of Systems: Constitutional - She is generally feeling good. Her energy is good and she has normal activity without restrictions. Her appetite is good and weight is up a few pounds. No fever, night sweats, or hot flashes. ECOG score is 0, ENMT - No sinus congestion/drainage. No mouth sores. No sore throat or difficulty swallowing, Hematologic/Lymphatic - No abnormal bruising or bleeding, Respiratory - No shortness of breath. No cough. No pleuritic pain or hemoptysis, Cardiovascular - No angina pain. No palpitations, Gastrointestinal - No nausea or vomiting. No heartburn or acid reflux. No diarrhea or constipation. No blood in the stool or black stools, Genitourinary (F) - No dysuria or hematuria. No urinary frequency. No urgency or incontinence, Musculoskeletal - She has some pain in her right hand. No other joint or bone pain, Integumentary - No skin complications, Neurologic - No headache or dizziness. No numbness or tingling. No other focal neurologic symptoms, Psychiatric - No anxiety or depression. No insomnia. Vital Signs: Performed on Mar 28, 2020 12:57 Height - 69.00 in Weight - 136 lbs (HIGH) BSA - 1.75 sq.m BMI - 20.08 Temperature - 98.9 F (HIGH) Pulse - 76 /min Respiration - 20 /min BP - 125/79 mm(hg) O2 Sat - 92 % (LOW) Pain - 0 Physical Examination: Constitutional - She looks good generally, Eyes - Sclerae nonicteric. Conjunctivae clear, ENMT - No lesions noted in the oral cavity, Hematologic/Lymphatic - No cervical, clavicular, or axillary adenopathy, Respiratory - Lungs are clear with some decrease in air movement bilaterally, Cardiovascular - Heart rhythm is regular. There is no murmur, gallop, or rub noted, Abdomen - Soft. Liver and spleen are not enlarged. There is no abdominal mass or ascites noted and there is no inguinal adenopathy, Extremities - No edema. She has good dorsalis pedis pulses are palpable bilaterally, Neurologic - No focal neurologic deficits noted. Lab/Imaging: Test performed on Mar 20, 2020 13:58 Glucose 94 mg/dL Vitamin D (25-Hydroxy) 39 ng/mL BUN 21 mg/dL Creatinine 1.42 mg/dL Cr Clearance (Est) 30.83 mL/min Sodium 136 mmol/L Potassium 4.4 mmol/L Chloride 100 mmol/L CO2 26 mmol/L Calcium 8.7 mg/dL Protein, Total 7.3 g/dL Albumin 4.4 g/dL Bilirubin, Total 0.4 mg/dL Alkaline Phosphatase 59 IU/L AST (SGOT) 27 IU/L ALT (SGPT) 16 IU/L WBC 6.6 10^9/L RBC 4.27 10^12/L HGB 14.2 g/dL HCT 41.9 % MCV 98.1 fl MCH 33.3 pg MCHC 33.9 g/dL RDW 12.5 % Platelet Count 217 10^9/L MPV 10.5 fL Neutrophils (Gran) 3.84 10^9/L Lymphocytes 2.14 10^9/L Monocytes 0.48 10^9/L Eosinophils 0.06 10^9/L Basophils 0.04 10^9/L Manual Lymphocytes 33 % Manual Monocytes 7 % Manual Eosinophils 1 % Manual Basophils 0 % Impression: 1. 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 Her Oncotype DX was in the low intermediate risk range. She underwent left mastectomy and sentinel axillary lymph node biopsy in February 2008. She opted not to take adjuvant chemotherapy. She has given adjuvant hormonal therapy with Arimidex. As of April 2014 she had completed 5 years treatment. Her other medical illnesses include: 2. Hypertension. 3. Stage III chronic kidney disease. 4. Osteoporosis. 5. She developed hypoparathyroidism following thyroidectomy in 1989. 6. She has chronic anxiety. She has continued observation/expectant management following completion of her adjuvant hormonal therapy. During follow-up her renal function has remained stable. She has been doing well clinically with no evidence of recurrence of the breast cancer. Plan: She remains on observation/expectant management for the breast cancer. I will see her again in one year. Signed By: Juancarlos Stahl M.D. <<Signature on File>>
== END 2020-03-28 12:56 | disposition home or self-care (01) ==
PROVIDERS: PCP Registered Nurse; Visit Provider Internal Medicine Medical Oncology
DX: Z08 Encounter for follow-up examination after completed treatment for malignant neoplasm (principal); Z85.3 Personal history of malignant neoplasm of breast; I12.9 Hypertensive chronic kidney disease with stage 1 through stage 4 chronic kidney disease, or unspecified chronic kidney disease; N18.3 Chronic kidney disease, stage 3 (moderate); M81.0 Age-related osteoporosis without current pathological fracture; E89.2 Postprocedural hypoparathyroidism; F41.9 Anxiety disorder, unspecified; Z90.12 Acquired absence of left breast and nipple; Z92.23 Personal history of estrogen therapy
CPT/HCPCS: G0463

== ENCOUNTER → 2020-09-13 13:35 | Outpatient (BNVA) | payer MEDICARE, OTHER, SELFPAY | PROVIDERS: PCP Registered Nurse; Visit Provider Registered Nurse | DX: N39.0 Urinary tract infection, site not specified (principal) | CPT/HCPCS: 81000 ==

== ENCOUNTER 2021-03-26 08:44 | Outpatient (CLI) | payer MEDICARE, OTHER, SELFPAY ==
--- NOTE | 2021-03-26 08:53 | MM_ITS ---
WS: [id number] RIGHT DIGITAL MAMMOGRAPHY WITH CAD CLINICAL INFORMATION: HX OF BREAST CA;LT MAST HISTORY: COMPARISON: March 24, 2020 TECHNIQUE: 3 views of the right breast were obtained. FINDINGS: The right breast is composed of heterogeneous fibroglandular density tissue, which can limit the dete ction of small underlying mass lesions. Nodular left breast tissue extending to the areola is unchang ed in appearance. A few incidental punctate and dystrophic calcifications. Vascular calcification. No suspicious focal mass, asymmetry, calcifications, or architectural distortion. No evidence of viral gnancy. MM/[place] [id number] IMPRESSION: BI-RADS: 2-Benign FOLLOW UP: 1 Year Follow-up Recommend return to annual diagnostic mammography.
== END 2021-03-26 08:45 | disposition home or self-care (01) ==
PROVIDERS: PCP Registered Nurse; Visit Provider Internal Medicine Medical Oncology
DX: Z85.3 Personal history of malignant neoplasm of breast (principal); Z90.12 Acquired absence of left breast and nipple
CPT/HCPCS: 77065

== ENCOUNTER 2021-03-27 11:30 | Outpatient (CLI) | payer MEDICARE, OTHER, SELFPAY ==
--- NOTE | 2021-04-09 07:35 | ONC FU_ITS ---
Dr. Stahl Patient Follow-Up Note Patient: Gladis Ceballos Unit #: [id number]: 1940 Dicatated By: Juancarlos Stahl M.D.Date of Visit:Mar 27, 2021 Onc Med Follow-up/Prog Note Chief Complaint: Breast cancer. 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 She had presented in 2007 with a lump in her left breast. The diagnosis was established by needle biopsy, which showed grade 2 mucinous adenocarcinoma. She opted not to have breast conservation. She underwent total mastectomy with left sentinel axillary lymph node biopsy on 03/09/2008. Pathology showed grade 2 invasive ductal carcinoma, mucinous type. The tumor measured 1.2 cm in maximum diameter. It was ER positive at 77% and WI negative at 0%. HER-2/micheal was also negative. There was no involvement in 2 sentinel x-ray lymph nodes. The Oncotype DX assay showed a recurrence score of 20, which was in the low intermediate risk category. She opted not to take adjuvant chemotherapy. She was given adjuvant hormonal therapy with Arimidex, which she stopped in April 2014 after completing 5 years of treatment. Her medical history is significant for thyroidectomy in 1989 with subsequent development of hypoparathyroidism. Her other medical illnesses include hypertension and chronic anxiety. Other surgeries have included hysterectomy/BSO in 1987, laparotomy for bowel obstruction in 1995, and removal of a cyst from the left ear in 1998. She has smoked for more than 45 years, previously in the range of a pack of cigarettes daily, but she did cut down to around a half a pack per day. She does not drink alcohol. During followup, she was found to have evidence of osteoporosis and she also was found to have stage III chronic kidney disease. She was mildly hypercalcemic, but that apparently was just due to excessive calcium replacement following previous parathyroid surgery. Thus far there has been no evidence of recurrence of the breast cancer. She is seen for a followup visit. She has been feeling pretty good generally. She still has good energy and she has normal activity. ECOG score is 0. Her appetite is good. She has no fever, night sweats, or hot flashes. She has a little bit of sinus drainage. She does not complain of shortness of breath, cough, or chest pain. She has no GI or complaints. She has no significant joint or bone pain. She has just occasional headache. She does not complain of dizziness, and she has no focal neurologic symptoms. Medications: Calcitriol 1 (0.5 mcg) Capsule Oral daily, Diazepam 1 (5 mg) Tablet Oral b.i.d., Enalapril Maleate 1 (10 mg) Tablet Oral b.i.d., Norvasc 1 (5 mg) Tablet Oral daily, Synthroid 1 (175 mcg) Tablet Oral daily Allergies: No Known Allergies. Vital Signs: Performed on Mar 27, 2021 11:19 Height - 69.00 in Weight - 133 lbs (LOW) BSA - 1.74 sq.m BMI - 19.64 Temperature - 98.5 F Pulse - 84 /min Respiration - 16 /min BP - 132/84 mm(hg) O2 Sat - 93 % (LOW) Pain - 0 Physical Examination: Constitutional - She looks good generally, Eyes - Sclerae nonicteric. Conjunctivae clear, ENMT - No lesions noted in the oral cavity, Hematologic/Lymphatic - No cervical or clavicular adenopathy, Respiratory - Lungs are clear with some decrease in air movement bilaterally, Cardiovascular - Heart rhythm is regular. There is no murmur, gallop, or rub noted, Breasts - The right breast shows no mass. The left chest wall shows no lesions. There is no axillary adenopathy, Abdomen - Soft. Liver and spleen are not enlarged. There is no abdominal mass or ascites noted and there is no inguinal adenopathy, Extremities - No edema, Neurologic - No focal neurologic deficits noted. Lab/Imaging: Test performed on Mar 19, 2021 16:05 Glucose 96 mg/dL BUN 19 mg/dL Creatinine 1.27 mg/dL Cr Clearance (Est) 34.41 mL/min Sodium 136 mmol/L Potassium 3.8 mmol/L Chloride 98 mmol/L CO2 27 mmol/L Calcium 8.7 mg/dL Protein, Total 7.7 g/dL Albumin 4.3 g/dL Bilirubin, Total 0.2 mg/dL Alkaline Phosphatase 62 IU/L AST (SGOT) 25 IU/L ALT (SGPT) 18 IU/L WBC 8.1 10^9/L RBC 4.63 10^12/L HGB 15.4 g/dL HCT 45.3 % MCV 97.8 fl MCH 33.3 pg MCHC 34 g/dL RDW 12.5 % Platelet Count 239 10^9/L MPV 9.9 fL Neutrophils (Gran) 4.96 10^9/L Lymphocytes 2.349 10^9/L Monocytes 0.567 10^9/L Eosinophils 0.081 10^9/L Basophils 0.081 10^9/L Problem List: 1. Grade 2 infiltrating ductal carcinoma of the left breast, stage IA, ER positive/WI negative and HER-2/micheal negative. Her Oncotype DX was in the low intermediate risk range. 2. Hypertension. 3. Stage III chronic kidney disease. 4. Osteoporosis. 5. She developed hypoparathyroidism following thyroidectomy in 1989. 6. She has chronic anxiety. 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 Her Oncotype DX was in the low intermediate risk range. She underwent left mastectomy and sentinel axillary lymph node biopsy in February 2008. She opted not to take adjuvant chemotherapy. She has given adjuvant hormonal therapy with anastrozole. As of April 2014 she had completed 5 years treatment. She was then followed expectantly. During follow-up she has been doing well. Her overall clinical status remains stable. There has been no evidence of recurrence of the breast cancer. She remains on expectant management. She will continue her regular follow-up with Bradley Foster. She should have yearly unilateral right diagnostic mammogram. I will plan to see her again only as needed. Signed By: Juancarlos Stahl M.D. <<Signature on File>>
== END 2021-03-27 11:31 | disposition home or self-care (01) ==
LOC: ONCMED 03-28 07:07
PROVIDERS: PCP Registered Nurse; Visit Provider Internal Medicine Medical Oncology
DX: Z08 Encounter for follow-up examination after completed treatment for malignant neoplasm (principal); Z85.3 Personal history of malignant neoplasm of breast; I12.9 Hypertensive chronic kidney disease with stage 1 through stage 4 chronic kidney disease, or unspecified chronic kidney disease; N18.30 Chronic kidney disease, stage 3 unspecified; M81.0 Age-related osteoporosis without current pathological fracture; F41.9 Anxiety disorder, unspecified; Z79.899 Other long term (current) drug therapy; E89.0 Postprocedural hypothyroidism
CPT/HCPCS: G0463

== ENCOUNTER 2022-05-02 14:18 | Emergency (ER) | payer MEDICARE, OTHER, SELFPAY ==
[2022-05-02 14:28] VITALS: BP 148/76; PULSE 81; RESP 18; TEMP 36.9; O2SAT 90; BMI 20.2
[2022-05-02 14:45] VITALS: BP 148/76; PULSE 81; RESP 18; TEMP 36.9; O2SAT 90
--- NOTE | 2022-05-02 14:59 | CTR_ITS ---
PROCEDURE INFORMATION: Exam: CT Head Without Contrast Exam date and time: 05/02/2022 4:26 PM Age: 81 years old Clinical indication: Other: Left ear, jaw pain S/P dental mini implants; Additional info: Pressure on left side of head and ear S/P dental implants TECHNIQUE: Imaging protocol: Computed tomography of the head without contrast. Radiation optimization: All CT scans at this facility use at least one of these dose optimization techniques: automated exposure control; mA and/or kV adjustment per patient size (includes targeted exams where dose is matched to clinical indication); or iterative reconstruction. COMPARISON: No relevant prior studies available. RADIATION DOSE METRICS: Total DLP (mGy-cm): 1056.18 FINDINGS: Brain: Moderate diffuse white matter disease likely reflecting chronic microvascular ischemic changes. Cerebral ventricles: No ventriculomegaly. Paranasal sinuses: Visualized sinuses are unremarkable. No fluid levels. Mastoid air cells: Visualized mastoid air cells are well aerated. Bones/joints: Unremarkable. No acute fracture. Soft tissues: Unremarkable. CT/CT head wo con* [id number] IMPRESSION: Negative for intracranial hemorrhage or mass effect.
--- NOTE | 2022-05-02 15:01 | ED_ITS ---
HPI - Ear Problem General: Chief complaint: Ear Stated complaint: Ear and throat pain Time Seen by Provider: 05/02/22 14:34 History of Present Illness: Patient is 81-year-old female comes to the ED with left ear complaint. She reports having some pressure in her left ear and left side of head. She also reports having some buzzing/ringing in left ear along with dizziness. She says her dizziness worsens when she gets up and moves around or if she hits her head in certain positions. Symptoms have been going on for close to a month. Patient was recently put on a steroid to try to help with your symptoms. Patient had recent dental work done within the last 3 months and is currently getting her dentures refitted. Patient states she has had problems like this with her left ear in the past and she ended up having a surgery to help fix it. Associated symptoms: Reports ear or mastoid pain (Left ear pressure); Denies fever(s), headache(s) or neck pain Review of Systems Const: Denies: fever(s), chills or fatigue Eyes: Denies: change in vision or eye discomfort ENMT: Reports: ear or mastoid pain (Left ear pressure); Denies: throat pain, odynophagia, nasal discharge or nasal congestion Card: Denies: chest pain, palpitations, edema, swelling of feet/ankles, dyspnea on exertion or orthopnea Resp: Denies: dyspnea, productive cough or non-productive cough GI: Denies: abdominal pain, nausea, vomiting, diarrhea, constipation or hematochezia : Denies: flank pain, dysuria or hematuria Musc: Denies: neck pain, back pain or extremity swelling Skin/Breast: Denies: rash or new lesions Neuro: Reports: dizziness and vertigo; Denies: headache(s), numbness in extremities or weakness in extremities PFSH ED PFSH: Medical History Anxiety Breast cancer Status post 5 years of adjuvant hormonal therapy with Arimidex Chronic kidney disease, stage III (moderate) Repeat BMP tomorrow COPD (chronic obstructive pulmonary disease) Hypertension Hypoparathyroidism Hypothyroidism Hypothyroidism (acquired) Osteoporosis Tobacco dependency Surgical History History of bilateral salpingo-oophorectomy History of ear surgery removal of cyst from L ear in 1998 History of hysterectomy History of laparotomy for bowel obstruction History of thyroidectomy in 1989 S/P mastectomy left, with sentinal lymph node biopsy Family History Father Cancer prostate cancer, lung cancer Grandmother Cancer breast cancer Mother CAD (coronary artery disease) Social History Smoking and tobacco status: never smoked Quit status (tobacco): considering quitting Second hand smoke exposure: No Alcohol intake: never Lives independently: Yes Household members: spouse Housing: House Physical Exam Const: COMMON NORMALS: no acute distress, patient oriented x3, healthy appear ing and alert HENMT: COMMON NORMALS: normocephalic HEAD & SCALP: normocephalic MOUTH: Normal oral and palatal mucosa present THROAT: posterior oropharynx normal and uvula midline Neck/C-Spine: COMMON NORMALS: supple GENERAL: Yes normal visual inspection Resp: COMMON NORMALS: normal respiratory effort, No retractions, No use of a ccessory muscles and clear to auscultation bilaterally AUSCULTATION: clear to auscultation bilaterally Cardio: COMMON NORMALS: regular rate, regular rhythm, S1 normal heart sound present, S2 normal heart sound present, No gallops present (Cardio), No clicks present (Cardio), No murmurs present (Cardio) and Peripheral pulses 2+ throughout RATE: regular rate RHYTHM: regular rhythm HEART SOUNDS: S1 normal heart sound present and S2 normal heart sound present PERIPHERAL PULSES: Peripheral pulses 2+ throughout GI: COMMON NORMALS: Normal to inspection, nondistended, normoactive bowel sounds present, Soft to palpation, non-tender and no masses PALPATION: Yes Soft to palpation : COMMON NORMALS: Yes no CVA tenderness BLADDER/KIDNEY EXAM: Yes no CVA tenderness Back/Pelvis: COMMON NORMALS: no CVA tenderness Extremity: COMMON NORMALS: normal to inspection Neuro: COMMON NORMALS: patient oriented x3, CN's II-XII intact bilaterally, moves all extremities, no focal motor deficits and no sensory deficits noted SENSORIUM/ORIENTATION: Yes alert SPEECH: speech normal GAIT: Yes Normal gait present Skin: GENERAL SKIN EXAM: dry skin Course Vital Signs: Vital signs: Vital Signs Temperature 98.4 F 05/02/22 14:45 Pulse Rate 76 05/02/22 16:49 Respiratory Rate 18 05/02/22 14:45 Blood Pressure 136/85 05/02/22 16:49 Pulse Oximetry 92 05/02/22 16:49 Oxygen Delivery Me thod 05/02/22 16:49 MDM - Ear Medical Decision Making Patient is an 81-year-old female who comes to the ED with left ear complaint. Patient says for the past month she has blowing type noise constantly in her l eft ear and has occasional dizziness as well. She says that the dizziness gets worse when her head in certain positions. Denies any chest pain, shortness of breath, fevers, nausea or vomiting. Patient says she has had similar symptoms in the left ear in the past and she saw an ENT specialist to treat it. she appears nontoxic and in no acute distress or pain. Vitals are stable. she has no neurodeficits noted. CBC and CT of head were all unremarkable showed no acute findings. Given her symptoms she likely has M?ni?re's disease in the left ear. Patient already has an appointment set up to see the ENT Dr. Lopez next week for left ear complaint. I placed an order with case management to confirm patient's appointment next week with Dr. Lopez. She was given strict return ED precautions. Lab Data I reviewed the patient's lab results. : 05/02/22 15:11 05/02/22 15:[address] 05/02/22 14:59 IMPRESSION: Negative for intracranial hemorrhage or mass effect. Laboratory Results WBC 9.6 10^3/uL (4.0-10.0) 05/02/22 15:11 RBC 5.05 10^6/uL (4.1-5.3) 05/02/22 15:11 Hgb 16.6 g/dL (11.5-15.3) H 05/02/22 15:11 Hct 49.0 % (37.0-47.0) H 05/02/22 15:11 MCV 97.0 fl (81-99) 05/02/22 15:11 MCH 32.9 pg (28.0-34.0) 05/02/22 15:11 MCHC 33.9 g/dL (30.0-36.0) 05/02/22 15:11 RDW 13.0 % (12.1-15.1) 05/02/22 15:11 Plt Count 240 10^3/cmm (130-400) 05/02/22 15:11 MPV 10.8 fL (7.4-10.4) H 05/02/22 15:11 Neut % (Auto) 72.1 % 05/02/22 15:11 Lymph % (Auto) 19.8 % 05/02/22 15:11 Lucas % (Auto) 7.0 % 05/02/22 15:11 Eos % (Auto) 0.4 % 05/02/22 15:11 Baso % (Auto) 0.3 % 05/02/22 15:11 Neut # (Auto) 6.88 10^3/uL (1.8-7.7) 05/02/22 15:11 Lymph # (Auto) 1.9 10^3/uL (0.8-4.8) 05/02/22 15:11 Lucas # (Auto) 0.7 10^3/uL (0.2-0.9) 05/02/22 15:11 Eos # (Auto) 0.0 10^3/uL (0.0-0.8) 05/02/22 15:11 Baso # (Auto) 0.0 10^3/uL (0.0-0.1) 05/02/22 15:11 Nucleated RBC % (auto) 0 % 05/02/22 15:11 Nucleated RBCs # 0.0 /100WBC 05/02/22 15:11 Sodium Cancelled 05/02/22 15:11 Potassium Cancelled 05/02/22 15:11 Chloride Cancelled 05/02/22 15:11 Carbon Dioxide Cancelled 05/02/22 15:11 Anion Gap Cancelled 05/02/22 15:11 BUN Cancelled 05/02/22 15:11 Creatinine Cancelled 05/02/22 15:11 GFR Calculation Cancelled 05/02/22 15:11 Glucose Cancelled 05/02/22 15:11 Calculated Osmolality Cancelled 05/02/22 15:11 Calcium Cancelled 05/02/22 15:11 Total Bilirubin Cancelled 05/02/22 15:11 AST Cancelled 05/02/22 15:11 ALT Cancelled 05/02/22 15:11 Alkaline Phosphatase Cancelled 05/02/22 15:11 Total Protein Cancelled 05/02/22 15:11 Albumin Cancelled 05/02/22 15:11 Globulin Cancelled 05/02/22 15:11 Discharge Plan Discharge Patient Disposition: Home 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 change: desires [employer] enalapril maleate 10 mg tablet 10 mg PO DAILY 90 Days Qty: 90 3RF Synthroid 175 mcg tablet 175 mcg PO DAILY 90 Days Qty: 90 3RF Rx Instructions: TSH 2.62 (at [facility] on 06/10) diazepam 5 mg tablet 5 mg PO BID PRN (Reason: anxiety) 90 Days Qty: 180 1RF calcium carb and citrate-vitD3 500 mg PO BID albuterol sulfate 90 mcg/actuation HFA aerosol inhaler 1 inh INHALATION Q6H PRN (Reason: shortness of breath or wheezing) Qty: 18 0RF Advair Diskus 100-50 mcg/dose blister with device 1 inh INHALATION DAILY Qty: 60 0RF Discharge Orders: Discharge ED (Routine); Ordered 05/02/22 Ordered By: Tee Mcgill Referrals: Nathan Foster FNP [Primary Care Provider] - Discharge Diet: Regular Discharge Activity: Increase activity as tolerated Patient Instructions: Meniere Disease (ED) Activity Restrictions/Additional Instructions: Follow-up with the ENT doctor at your scheduled appointment on May 07. Continue taking all home medications as previously prescribed. Try taking [id number]-aip-[id number] decongestants or trying Flonase nasal spray to see if that helps with your symptoms. Return to the ER or your medical provider if condition worsens. Please read and understand discharge instructions. Thank you for choosing [facility] for your healthcare needs today. Please realize this is an emergency room and that we are providing you with a medical screening exam and this may not be complete and all inclusive of all the testing and or work up that you may need to determine your ailment or severity of your illness. It is very important that you follow up as instructed or that you return to the Emergency Department should you have concerns or if your condition changes or worsens in any way. Coding Level of Care Code ED Underwriting Manager for Chg Fwd Exam Comprehensive
[2022-05-02 15:20] LABS: Basophils % 0.3 %; Eosinophils % 0.4 %; Hemoglobin 16.6 g/dL (11.5-15.3); Lymphocytes # 1.9 10^3/uL (0.8-4.8); Lymphocytes % 19.8 %; Mean Corpuscular HGB Conc 33.9 g/dL (30.0-36.0); Mean Corpuscular Hemoglobin 32.9 pg (28.0-34.0); Mean Platelet Volume 10.8 fL (7.4-10.4); Monocytes # 0.7 10^3/uL (0.2-0.9); Neutrophils # 6.88 10^3/uL (1.8-7.7); Neutrophils % 72.1 %; Nucleated Red Blood Cells % 0 %; Platelet Count 240 10^3/cmm (130-400); Red Blood Count 5.05 10^6/uL (4.1-5.3); White Blood Count 9.6 10^3/uL (4.0-10.0)
[2022-05-02 16:49] VITALS: BP 136/85; PULSE 76; O2SAT 92
--- NOTE | 2022-05-03 09:43 | DCPLANNER ---
Addendum entered by Marissa Oconnell 05/07/22 15:46: Patient had a follow up appointment scheduled for 05.07.22 with ENT - patient did attend appointment. Original Note: solution design and analysis manager had message to schedule a follow up appointment for patient with ENT. solution design and analysis manager sent patients information to the front office staff at ENT. Patients information will be printed and reviewed. Clinic will call patient with appointment information.
== END 2022-05-02 17:13 | disposition home or self-care (01) ==
PROVIDERS: Emergency Provider Physician Assistant; PCP Registered Nurse
DX: H81.02 Meniere's disease, left ear (principal)
CPT/HCPCS: 70450; 85025; 99284

== ENCOUNTER → 2022-05-07 12:39 | Outpatient (BNVA) | payer MEDICARE, OTHER, SELFPAY | PROVIDERS: PCP Registered Nurse; Visit Provider Otolaryngology | DX: H69.82 Other specified disorders of Eustachian tube, left ear (principal); H65.02 Acute serous otitis media, left ear; M26.623 Arthralgia of bilateral temporomandibular joint; F17.210 Nicotine dependence, cigarettes, uncomplicated | CPT/HCPCS: 99202; 99203 ==

== ENCOUNTER → 2022-08-08 15:09 | Outpatient (BNVA) | payer MEDICARE, SELFPAY | PROVIDERS: PCP Registered Nurse; Visit Provider Nurse Practitioner Family | DX: R68.89 Other general symptoms and signs (principal) | CPT/HCPCS: 87400 ==